=== PATIENT | male | born 1970 | race Caucasian/White ===

== ENCOUNTER → 2021-01-05 | Outpatient (CLI) | payer BC ==
[~2021-01-05] MED LIST: OMNIPAQUE 350 MG/ML, 150 ML BOTTLE ONE; ONDA4TAB7 PO; OXYC1TAB14 PO; QUET100T4 PO
== END | disposition home or self-care (01) ==
LOC: RAD 14:31
DX: R10.84 Generalized abdominal pain (principal); Z90.49 Acquired absence of other specified parts of digestive tract
CPT/HCPCS: 74178; Q9967